=== PATIENT | male | born 1950 | race Caucasian/White ===

== ENCOUNTER 2020-03-26 09:46 | Emergency (ER) | payer MEDICARE, OTHER ==
[~2020-03-26] VITALS: Ht 185.4 cm; Wt 117.9 kg
[2020-03-26] MEDS ORDERED: AMLODIPINE BESY10 MG PO (10:09)
[2020-03-26] MEDS ORDERED: VALSARTAN320 MG PO (10:09)
[2020-03-26] MEDS ORDERED: COUMADIN5 MG PO (10:10)
[2020-03-26] MEDS ORDERED: ASPIRIN81 MG PO (10:10)
[2020-03-26] MEDS ORDERED: METOPROLOL SUC100 MG PO (10:10)
[2020-03-26] MEDS ORDERED: SPIRONOLACTONE50 MG PO (10:11)
[2020-03-26] MEDS ORDERED: PRILOSEC OTC20 MG PO (10:11)
[2020-03-26] MEDS ORDERED: K-TAB ER20 MEQ PO (10:12)
[2020-03-26] MEDS ORDERED: GLIPIZIDE10 MG PO (10:12)
[2020-03-26] MEDS ORDERED: HYDROCHLOROTHIA25 MG PO (10:12)
[2020-03-26] MEDS ORDERED: PIOGLITAZONE HC45 MG PO (10:13)
[2020-03-26] MEDS ORDERED: PERCOCET 5-3251 EACH PO (10:13)
[2020-03-26] MEDS ORDERED: SIMVASTATIN20 MG PO (10:13)
[2020-03-26] MEDS ORDERED: CYCLOBENZAPRINE10 MG PO (10:14)
[2020-03-26] MEDS ORDERED: SILDENAFIL20 MG PO (10:14)
--- NOTE | 2020-03-26 15:42 | EKG ---
[facility] [address] [facility] [place], [place] [address] Signed Atrial fibrillation with rapid ventricular response Incomplete left bundle branch block Abnormal ECG No previous ECGs available Confirmed by DIEGO BARRERA MD ([id number] on 03/26/2020 3:41:54 PM Electronically Signed By: DIEGO BARRERA MD 03/26/20 1542 PATIENT NAME: ILSA BRISCOE Electrocardiogram DATE OF : 52 PHYSICIAN: DIEGO BARRERA MD REPORT #: [id number] REPORT IS CONFIDENTIAL AND NOT TO BE RELEASED WITHOUT AUTHORIZATION
== END 2020-03-26 15:15 | disposition home or self-care (01) ==
LOC: ED 09:46
DX: E86.0 Dehydration (principal); E83.42 Hypomagnesemia; I48.91 Unspecified atrial fibrillation; I50.9 Heart failure, unspecified; Z79.899 Other long term (current) drug therapy; Z79.84 Long term (current) use of oral hypoglycemic drugs; Z79.82 Long term (current) use of aspirin; Z79.01 Long term (current) use of anticoagulants
CPT/HCPCS: 71045; 80053; 81001; 83735; 83880; 84484; 85025; 85610; 93005; 93010; 96365; 96375; 99285-25; J3475; J7040